=== PATIENT | male | born 1990 | race Caucasian/White ===

== ENCOUNTER 2016-12-25 19:54 | Emergency (ER) | payer BC ==
--- NOTE | ~2016-12-25 | CR72 ---
[facility] A Service of [facility] [place] [facility] RADIOLOGY TEXT RESULTS PATIENT: TORI SINGH LOCATION: [facility] : 88 UNIT #: [id number] AGE: [address]: Chris Poon DO SEX: M ORDER DR: [id number] [facility] [address] [place], [place] [address] [id number] MR#: [id number] Acc #: [id number] NAME: TORI SINGH. : 1990 SEX: M STUDY DATE/TIME: 12/25/2016 18:29 UNIT: [facility] ROOM: STUDY DESCRIPTION: CR Chest Single View Portable Attending Physician: Chris Poon D.O. Ordering Physician: Chris Poon D.O. Primary Care Physician: Ally Linder M.D. MEDICAL IMAGING REPORT This report is preliminary unless electronic signature is present EXAM Portable chest x-ray 12/25/2016 HISTORY Chest pain. Short of air, allergic reaction. Duration today. FINDINGS AP radiograph of the chest is presented. No comparisons. The lungs are well inflated without evidence of acute pulmonary disease. No pleural effusion or pneumothorax. No suspicious nodule. Cardiomediastinal contours normal. Mild levoscoliosis thoracic spine. No acute-appearing bony abnormality. Dictated by... Gopal Medina M.D. THIS IS AN ELECTRONICALLY VERIFIED REPORT Gopal Medina M.D. at 12/26/2016 10:21 PM [place] TD: 12/25/2016 22:30 JOB #: [id number] MEDICAL IMAGING REPORT Page 1 of 1 COPY
--- NOTE | ~2016-12-25 | EKG ---
PATIENT: TORI SINGH UNIT #: [id number] Ventricular Rate: 73 BPM Atrial Rate: 73 BPM P-R Interval: 130 ms QRS Duration: 92 ms Q-T Interval: 366 ms QTC Calculation(Bezet): 403 ms P Stanton: 46 degrees Calculated R Stanton: 62 degrees Calculated T Stanton: 29 degrees Diagnosis Line: Normal sinus rhythm Diagnosis Line: Normal ECG Diagnosis Line: No previous ECGs available Diagnosis Line: Confirmed by DAGO BIRD MD ([id number]) on 12/25/2016 Diagnosis Line: 10:39:28 PM INTERPRETING MD: PELON KAY
[2016-12-25 17:58] LABS: POC - CKMB 1.6 ng/mL (0.0-7.9); POC - TROPONIN <0.05 ng/mL (<=0.05)
[2016-12-25 18:29] LABS: BASOPHIL% 0.5 % (0-2.5); EOSINOPHIL# 0.1 X10e3 (0-0.7); EOSINOPHIL% 1.7 % (0.0-7.0); HEMATOCRIT 45.5 % (38.0-50.0); HEMOGLOBIN 15.3 gm/dL (13.0-16.0); LYMPHOCYTE# 2.2 X10e3 (1.0-3.5); LYMPHOCYTE% 30.8 % (17.0-45.0); MEAN CELL VOLUME 92.5 FL (83-96); MEAN CORPUSCULAR HEMOGLOBIN 31.2 PG (28-34); MEAN CORPUSCULAR HGB CONC 33.7 g/dL (30-36); MEAN PLATELET VOLUME 8.9 FL (6.5-11.5); MONOCYTE# 0.4 X10e3 (0-1.0); MONOCYTE% 6.1 % (3.0-12.0); NEUTROPHIL# 4.4 X10e3 (1.5-7.1); NEUTROPHIL% 60.9 % (40-75); PLATELET COUNT 264 X10e3 (140-420); RED BLOOD COUNT 4.92 X10e (3.90-5.60); RED CELL DISTRIBUTION WIDTH 13.6 % (11.0-15.5); WHITE BLOOD COUNT 7.2 X10e3 (4.0-10.5)
[2016-12-25 18:32] LABS: DIFF IND NO
[2016-12-25 18:50] LABS: BUN/CREATININE RATIO 10.62; CALCIUM SERUM 9.8 mg/dL (8.4-10.2); CREATININE SERUM 1.6 mg/dL (0.6-1.4); GLOM FILT RATE Estimated 58.2 mL/min (>60); POTASSIUM 3.7 mmol/L (3.5-5.1)
[2016-12-25 19:35] LABS: POC - CKMB 1.4 ng/mL (0.0-7.9); POC - TROPONIN <0.05 ng/mL (<=0.05)
== END 2016-12-25 20:35 | disposition home or self-care (01) ==
LOC: CED 19:54
PROVIDERS: Emergency Medicine
DX: N17.9 Acute kidney failure, unspecified (principal); R22.0 Localized swelling, mass and lump, head; T78.1XXA Other adverse food reactions, not elsewhere classified, initial encounter; Z88.5 Allergy status to narcotic agent; Z88.8 Allergy status to other drugs, medicaments and biological substances; Z87.891 Personal history of nicotine dependence
CPT/HCPCS: 36415; 71010; 80048; 82553; 84484; 85025; 93005; 96361; 96374; 96375; 99284; J2930